=== PATIENT | female | born 1970 ===

== ENCOUNTER 2020-04-20 13:01 | Outpatient (CLI) | payer OTHER | END 2020-04-20 13:21 | disposition home or self-care (01) | LOC: MAMO-SONO 13:01 | PROVIDERS: ATTEND Obstetrics & Gynecology | DX: Z12.31 Encounter for screening mammogram for malignant neoplasm of breast (principal); N64.4 Mastodynia; N64.59 Other signs and symptoms in breast ==

== ENCOUNTER 2021-05-27 09:45 | Outpatient (CLI) | payer OTHER | END 2021-05-27 09:48 | disposition home or self-care (01) | LOC: MAMO-SONO 09:45 | PROVIDERS: ATTEND Obstetrics & Gynecology | DX: N60.01 Solitary cyst of right breast (principal); Z12.31 Encounter for screening mammogram for malignant neoplasm of breast; N60.02 Solitary cyst of left breast ==